=== PATIENT | female | born 1990 | race Caucasian/White ===

== ENCOUNTER 2017-06-12 12:50 | Outpatient (CLI) | payer OTHER ==
[~2017-06-12] VITALS: Ht 152.4 cm; Wt 75.4 kg
[2017-06-12 13:25] VITALS: BP 134/84
[2017-06-12] MEDS ORDERED: SODIUM CHLORIDE 0.9% 1,000 ML IV SCH (13:31)
[2017-06-12] MEDS ORDERED: LIDOCAINE 1%, 20ML ONE (14:37)
== END 2017-06-12 19:00 | disposition home or self-care (01) ==
LOC: RAD 12:50
PROVIDERS: ATTEND Family Medicine
DX: D35.2 Benign neoplasm of pituitary gland (principal)
CPT/HCPCS: 70553; J3490; 36415; 62270; 82040; 82042; 82784; 82945; 83873; 84157; 86645; 86695; 86696; 86762; 86777; 86778; 89051; A9585

== ENCOUNTER → 2017-07-31 | Outpatient (CLI) | payer OTHER ==
[~2017-07-31] MED LIST: GABA300C10 PO; OMEP-110 PO; OXYB5TAB7 PO; PRED10TA PO; SERT25TA3 PO
== END | disposition home or self-care (01) ==
LOC: CFH 10:16
PROVIDERS: ATTEND Registered Nurse
DX: M41.82 Other forms of scoliosis, cervical region (principal); M47.894 Other spondylosis, thoracic region
CPT/HCPCS: 72156; 72157

== ENCOUNTER → 2018-02-06 | Outpatient (CLI) | payer OTHER ==
[~2018-02-06] MED LIST changes: +GADOBUTROL 7.5 MMOL/7.5 ML PFS ONE
== END | disposition home or self-care (01) ==
LOC: RAD 13:15
PROVIDERS: ATTEND Registered Nurse
DX: G35 Multiple sclerosis (principal)
CPT/HCPCS: 70553; 72156; A9585

== ENCOUNTER 2019-11-28 16:17 | Day surgery (SDC) | payer BC, MEDICAID ==
[~2019-11-28] VITALS: Ht 162.6 cm; Wt 83.6 kg
[~2019-11-28 16:17] MED LIST changes: +ACET325T26 PO; +ACID1TAB7 PO; +FING0.5C3 PO; +GABA-827 PO; +GABA800T5 PO; -GADOBUTROL 7.5 MMOL/7.5 ML PFS ONE; +IBUP-1222 PO; +NICO-486 TD; +ONDA4TAB13 PO; +OXYB5TAB10 PO; -OXYB5TAB7 PO; +VENL75CA6 PO
[2019-11-28] MEDS ORDERED: D5%-LACTATED RINGERS 1,000 ML IV SCH ×2 (16:30→17:20)
[2019-11-28 16:37] VITALS: BP 125/69
[2019-11-28] MEDS ORDERED: CLINDAMYCIN PMX 900MG/50ML 50 ML ONE (16:41)
[2019-11-28 16:57] LABS: BASOPHILS # (AUTO) 0.03 x10^3/uL (0-0.1); BASOPHILS % (AUTO) 0 % (0-1); EOSINOPHILS # (AUTO) 0.03 x10^3/uL (0-0.4); EOSINOPHILS % (AUTO) 0 % (1-7); LYMPHOCYTES # (AUTO) 1.19 x10^3/uL (1-3.4); LYMPHOCYTES % (AUTO) 8 % (22-44); MD NO; MEAN CORPUSCULAR HEMOGLOBIN 31.4 pg (27.0-34.8); MEAN CORPUSCULAR HGB CONC 33.2 g/dL (32.4-35.8); MEAN CORPUSCULAR VOLUME 94.4 fL (80-100); MEAN PLATELET VOLUME 7.9 fL (7.4-10.4); MONOCYTES # (AUTO) 0.26 x10^3/uL (0.2-0.8); MONOCYTES % (AUTO) 2 % (2-9); NEUTROPHILS # (AUTO) 13.48 x10^3/uL (1.8-6.8); NEUTROPHILS % (AUTO) 90 % (42-75); PLATELET COUNT 232 x10^3/uL (130-400); RED BLOOD COUNT 3.92 x10^6/uL (3.82-5.3)
[2019-11-28] MEDS ORDERED: PLEASE ENTER HEIGHT AND WEIGHT MC SCH (17:00)
[2019-11-28] MEDS ORDERED: PNV11TAB PO (17:14)
[2019-11-28] MEDS ORDERED: METH8TAB5 PO (17:14)
[2019-11-28] MEDS ORDERED: PROG200C10 VG (17:16)
[2019-11-28] MEDS: LACTATED RINGERS 1,000 ML IV SCH ×2 (17:17→17:56)
[2019-11-28 17:59] LABS: AMPHETAMINE SCREEN, URINE Negative (Negative); BARBITURATE SCREEN, URINE Negative (Negative); BENZODIAZEPINE SCREEN, URINE Negative (Negative); CANNABINOID SCREEN, URINE Negative (Negative); COCAINE SCREEN, URINE Negative (Negative); METHADONE SCREEN, URINE Negative (Negative); OPIATE SCREEN, URINE Negative (Negative)
[2019-11-28] MEDS ORDERED: MIDAZOLAM 1 MG/ML, 2ML ONE (18:51)
[2019-11-29] MEDS ORDERED: DOCUSATE 100 MG CAPSULE PO SCH (09:00)
[2019-11-29] MEDS ORDERED: DOCUSATE 100 MG CAPSULE ONE (09:24)
== END 2019-11-29 10:10 | disposition home or self-care (01) ==
LOC: OUT 16:17 → LDOP 16:17 → LDIP 17:00 → UNDOADMOB 17:00 → UNDODISOB 11-29 10:10 → OUT 11-29 10:10 → EDSTATUS 12-02 07:29
PROVIDERS: ATTEND Obstetrics & Gynecology
DX: O26.872 Cervical shortening, second trimester (principal); Z3A.23 23 weeks gestation of pregnancy; G47.30 Sleep apnea, unspecified; F17.210 Nicotine dependence, cigarettes, uncomplicated; F12.90 Cannabis use, unspecified, uncomplicated; Z79.899 Other long term (current) drug therapy; Z88.8 Allergy status to other drugs, medicaments and biological substances
CPT/HCPCS: 36415; 59320; 80307; 85025; 87635; 96360; 96361; J2250; J7120; J7121; 59025; 99211; G0378; G0463

== ENCOUNTER 2020-03-06 16:25 | Observation (INO) | payer MEDICAID ==
[~2020-03-06] VITALS: Ht 162.6 cm; Wt 98.6 kg
[~2020-03-06 16:25] MED LIST changes: +METH8TAB5 PO; +PNV11TAB PO; +PROG200C10 VG
[2020-03-06] MEDS ORDERED: TERBUTALINE 1 MG/ML, 1ML ONE (16:47)
[2020-03-06 16:59] VITALS: BP 120/69
[2020-03-06] MEDS ORDERED: TERBUTALINE 1 MG/ML, 1ML SQ ONE (17:00)
[2020-03-06 18:46] LABS: AMPHETAMINE SCREEN, URINE Negative (Negative); BARBITURATE SCREEN, URINE Negative (Negative); BENZODIAZEPINE SCREEN, URINE Negative (Negative); CANNABINOID SCREEN, URINE Negative (Negative); COCAINE SCREEN, URINE Negative (Negative); METHADONE SCREEN, URINE Negative (Negative); OPIATE SCREEN, URINE Negative (Negative)
[2020-03-06] MEDS ORDERED: SODIUM CHLORIDE FLUSH 10ML SYR IVF SCH (21:00)
== END 2020-03-06 23:07 | disposition home or self-care (01) ==
LOC: LDOP 16:25 → LDIP 18:30
PROVIDERS: ADMIT Obstetrics & Gynecology; ATTEND Obstetrics & Gynecology
DX: O32.1XX0 Maternal care for breech presentation, not applicable or unspecified (principal); Z20.828 Contact with and (suspected) exposure to other viral communicable diseases; O34.33 Maternal care for cervical incompetence, third trimester; O99.354 Diseases of the nervous system complicating childbirth; G35 Multiple sclerosis; O99.324 Drug use complicating childbirth; F12.90 Cannabis use, unspecified, uncomplicated; O99.334 Smoking (tobacco) complicating childbirth; F17.210 Nicotine dependence, cigarettes, uncomplicated; Z3A.38 38 weeks gestation of pregnancy; Z79.899 Other long term (current) drug therapy
CPT/HCPCS: 59025; 59412; 59871; 80307; 87635; 96372; G0378; J3105

== ENCOUNTER 2020-03-12 06:06 | Inpatient (IN) | payer MEDICAID ==
[~2020-03-12] VITALS: Ht 162.6 cm; Wt 100.9 kg
[2020-03-12] MEDS ORDERED: TERBUTALINE 1 MG/ML, 1ML SQ PRN (07:00)
[2020-03-12] MEDS ORDERED: CALCIUM CARBONATE 500 MG TAB.CHEW PO PRN (07:00)
[2020-03-12] MEDS ORDERED: OXYTOCIN 30U/ 0.9% NaCL 500ML 500 ML IV PRN (07:00)
[2020-03-12] MEDS ORDERED: FENTANYL PF 100 MCG/2ML IV PRN ×2 (07:00→08:30)
[2020-03-12] MEDS ORDERED: LACTATED RINGERS 1,000 ML IV SCH (07:00)
[2020-03-12] MEDS ORDERED: OXYTOCIN 30U/ 0.9% NaCL 500ML 500 ML IV ONE (07:00)
[2020-03-12] MEDS ORDERED: TERBUTALINE 1 MG/ML, 1ML IVPush PRN (07:00)
[2020-03-12] MEDS ORDERED: ONDANSETRON 2MG/ML, 2ML IVPush PRN ×2 (07:00→08:30)
[2020-03-12] MEDS ORDERED: METOCLOPRAMIDE 5 MG/ML, 2ML IVPush PRN (07:00)
[2020-03-12] MEDS ORDERED: D5%-LACTATED RINGERS 1,000 ML IV SCH (07:00)
[2020-03-12] MEDS ORDERED: SODIUM CITRATE/CITRIC ACID 30 ML UDC PO PRN (07:00)
[2020-03-12 07:09] LABS: BASOPHILS % (AUTO) 1 % (0-1); EOSINOPHILS % (AUTO) 2 % (1-7); LYMPHOCYTES % (AUTO) 16 % (22-44); MEAN CORPUSCULAR HGB CONC 33.8 g/dL (32.4-35.8); MEAN PLATELET VOLUME 7.5 fL (7.4-10.4); MONOCYTES % (AUTO) 5 % (2-9); NEUTROPHILS % (AUTO) 76 % (42-75); PLATELET COUNT 231 x10^3/uL (130-400); RED BLOOD COUNT 3.76 x10^6/uL (3.82-5.3); RED CELL DISTRIBUTION WIDTH 13.5 % (9.6-15.2)
[2020-03-12 07:10] LABS: MD NO
[2020-03-12] MEDS ORDERED: NEWBORN KIT ONE (08:18)
[2020-03-12] MEDS ORDERED: LIDOCAINE 1%, 20ML ONE (08:18)
[2020-03-12] MEDS ORDERED: OXYTOCIN 30U/ 0.9% NaCL 500ML 500 ML ONE ×3 (08:18→22:39)
[2020-03-12] MEDS ORDERED: MISOPROSTOL 200 MCG TABLET ONE (08:18)
[2020-03-12] MEDS ORDERED: MIDAZOLAM 1 MG/ML, 2ML IV PRN (08:30)
[2020-03-12] MEDS ORDERED: METOPROLOL 1 MG/ML, 5ML IV PRN (08:30)
[2020-03-12] MEDS ORDERED: NALOXONE 0.4 MG/ML, 1ML IVPush PRN (08:30)
[2020-03-12] MEDS: LACTATED RINGERS 1,000 ML IV SCH ×2 (08:30→16:30)
[2020-03-12] MEDS ORDERED: EPHEDRINE 50 MG/ML, 1ML IVPush PRN ×2 (08:30)
[2020-03-12] MEDS ORDERED: HYDROcodone/APAP 7.5-325MG/15ML UDC PO PRN (08:30)
[2020-03-12] MEDS ORDERED: ALBUTEROL SULFATE 2.5 MG/3 ML NPPB PRN (08:30)
[2020-03-12] MEDS ORDERED: HYDROmorphone 2 MG/ML, 1ML IVPush PRN (08:30)
[2020-03-12] MEDS ORDERED: FENTANYL/BUPIV./NS/PF 250 ML EPIDCONT SCH (08:30)
[2020-03-12] MEDS ORDERED: OXYcodone 5 MG/5 ML ORAL.SOL UDC PO PRN (08:30)
[2020-03-12] MEDS ORDERED: MEPERIDINE/PF 25MG/0.5ML IVPush PRN (08:30)
[2020-03-12] MEDS ORDERED: LABETALOL 5MG/ML, 20ML IV PRN (08:30)
[2020-03-12] MEDS ORDERED: hydrALAzine 20 MG/ML, 1ML IV PRN (08:30)
[2020-03-12] MEDS ORDERED: PROMETHAZINE 25 MG/ML, 1ML IV PRN (08:30)
[2020-03-12] MEDS ORDERED: FENTANYL PF 100 MCG/2ML ONE ×4 (12:53→16:25)
[2020-03-12] MEDS: FENTANYL PF 100 MCG/2ML IVPush PRN ×4 (13:00→16:29)
[2020-03-12] MEDS: LACTATED RINGERS 1,000 ML IVBOLUS PRN ×2 (15:41→16:29)
[2020-03-12] MEDS ORDERED: BUPIVACAINE 0.25% ONE (16:09)
[2020-03-12] MEDS ORDERED: FENTANYL/BUPIV./NS/PF 250 ML EPIDCONT ONE (16:09)
[2020-03-12] MEDS ORDERED: DOCUSATE 100 MG CAPSULE PO PRN (21:30)
[2020-03-12] MEDS ORDERED: OXYcodone/APAP 5/325MG TABLET PO PRN (21:30)
[2020-03-12] MEDS ORDERED: MISOPROSTOL 200 MCG TABLET PR PRN (21:30)
[2020-03-12] MEDS ORDERED: ACETAMINOPHEN 325 MG TABLET PO PRN (21:30)
[2020-03-12] MEDS ORDERED: SIMETHICONE 80 MG CHEW TAB PO PRN (21:30)
[2020-03-12] MEDS ORDERED: OXYcodone IR 5MG TABLET PO PRN (21:30)
[2020-03-12] MEDS ORDERED: ONDANSETRON 2MG/ML, 2ML IV PRN (21:30)
[2020-03-12] MEDS: OXYTOCIN 30U/ 0.9% NaCL 500ML 500 ML IV SCH (22:42)
[2020-03-12 23:14] VITALS: BP 109/74
[2020-03-13] MEDS: LACTATED RINGERS 1,000 ML IV SCH ×2 (00:30→07:15)
[2020-03-13 04:15] VITALS: BP 105/70
[2020-03-13] MEDS: IBUPROFEN 600 MG TABLET PO PRN ×3 (04:30→16:20)
[2020-03-13 06:17] LABS: BASOPHILS % (AUTO) 0 % (0-1); EOSINOPHILS % (AUTO) 1 % (1-7); LYMPHOCYTES % (AUTO) 11 % (22-44); MEAN CORPUSCULAR HEMOGLOBIN 30.1 pg (27.0-34.8); MEAN CORPUSCULAR HGB CONC 32.9 g/dL (32.4-35.8); MEAN PLATELET VOLUME 8.1 fL (7.4-10.4); MONOCYTES % (AUTO) 5 % (2-9); NEUTROPHILS % (AUTO) 83 % (42-75); PLATELET COUNT 192 x10^3/uL (130-400); RED BLOOD COUNT 3.59 x10^6/uL (3.82-5.3); RED CELL DISTRIBUTION WIDTH 13.9 % (9.6-15.2)
[2020-03-13 06:23] LABS: MD NO
[2020-03-13] MEDS: OXYTOCIN 30U/ 0.9% NaCL 500ML 500 ML IV SCH ×2 (07:15→17:30)
[2020-03-13 08:34] VITALS: BP 102/71
[2020-03-13] MEDS: PRENATAL VIT/IRON/FA 1 EACH TABLET PO SCH ×2 (09:00→10:49)
[2020-03-13] MEDS ORDERED: NICOTINE 21 MG/24 HR PATCH.TD24 TD SCH (09:00)
[2020-03-13 12:58] VITALS: BP 108/73
[2020-03-13 16:21] VITALS: BP 129/84
[2020-03-13] MEDS ORDERED: IBUP-1222 PO (18:30)
[2020-03-13] MEDS ORDERED: DIPH,PERTUSS(ACELL),TET VAC/PF NC IM-VACC ONE ×2 (18:36→19:30)
[2020-03-13 19:45] VITALS: BP 127/83
== END 2020-03-13 21:15 | disposition home or self-care (01) | DRG 807 ==
LOC: LDIP 06:06 → 2NW 23:02
PROVIDERS: ADMIT Obstetrics & Gynecology; ATTEND Obstetrics & Gynecology
PROC: 10E0XZZ Delivery of Products of Conception, External Approach (ICD-10-PCS; principal; 2020-03-12)
PROC: 0KQM0ZZ Repair Perineum Muscle, Open Approach (ICD-10-PCS; 2020-03-12)
DX: O70.1 Second degree perineal laceration during delivery (principal); Z37.0 Single live birth; Z20.828 Contact with and (suspected) exposure to other viral communicable diseases; Z3A.00 Weeks of gestation of pregnancy not specified
CPT/HCPCS: 36415; 85025; 86592; 86850; 86900; 87635; 90715; G0378; J3010; J2590; J7120